=== PATIENT | male | born 1945 | race Two or more races ===

== ENCOUNTER 2017-07-11 16:13 | Outpatient (CLI) | payer OTHER | END 2017-07-11 16:23 | disposition home or self-care (01) | LOC: LAB 16:13 | DX: R97.20 Elevated prostate specific antigen [PSA] (principal) ==

== ENCOUNTER 2017-08-03 07:46 | Outpatient (CLI) | payer OTHER | END 2017-08-03 07:55 | disposition home or self-care (01) | LOC: SONOGRAMA 07:46 | DX: R97.20 Elevated prostate specific antigen [PSA] (principal) ==